=== PATIENT | female | born 2000 | race Two or more races ===

== ENCOUNTER 2025-03-05 10:59 | Observation (INO) | payer MEDICAID, OTHER ==
[~2025-03-05] VITALS: Ht 154.9 cm; Wt 60.0 kg
--- NOTE | 2025-03-05 11:10 | ED.PDOC ---
Back pain HPI HPI Comments This is a 25 year old female PATRICIA presenting to the ED with chief complaint of lower back pain. Patient reports that she has been experiencing right lower back pain for the past 2 days that radiates both down to her right thigh and up to her neck. Patient relays that she is currently 23 weeks and her pain came on spontaneously. Patient states she was seen at [facility] today, but had EMS called to take her to the ED for further evaluation. EMS notes patient was hypotensive at 97/63, providing a 1L bolus for relief. Patient denies any nausea, vomiting, abdominal pain, dysuria, fall, dizziness, or injury. Patient is . Time Seen by MD: 11:06 Reviewed Notes: Nurses Notes, Steel Tier Notes, Medications, Allergies Information Source: Patient, Emergency Med Personnel Mode of Arrival: EMS Timing: Days Duration: Since onset Location of Back pain: (R) Lumbar Radiates to: Posterior: (R) Thigh Severity: Moderate Prehospital treatment: None Quality: Aching Onset: Spontaneous History of: None Past Medical History PAST MEDICAL HISTORY: Denies Surgical History: Denies all surgeries NURSE QUALITY History: No Pertinent NURSE QUALITY History Family History Family History: Reviewed,noncontributory to illness Social History Smoker: Non-Smoker Alcohol: Denies ETOH Use Drugs: Denies Drug Use Lives In: Home Constitutional: denies: chills, diaphoresis, fatigue, fever, malaise, sweats, weakness, others EENTM: denies: blurred vision, double vision, ear bleeding, ear discharge, ear drainage, ear pain, ear ringing, eye pain, eye redness, hearing loss, mouth pain, mouth swelling, nasal discharge, nose bleeding, nose congestion, nose pain, photophobia, tearing, throat pain, throat swelling, voice changes, others Respiratory: denies: cough, hemoptysis, orthopnea, SOB at rest, shortness of breath, SOB with excertion, stridor, wheezing, others Cardiovascular: denies: chest pain, dizzy spells, diaphoresis, Dyspnea on exertion, edema, irregular heart beat, left arm pain, lightheadedness, palpitations, PND, syncope, others Gastrointestinal: denies: abdomen distended, abdominal pain, blood streaked bowels, constipated, diarrhea, dysphagia, difficulty swallowing, hematemesis, melena, nausea, poor appetite, poor fluid intake, rectal bleeding, rectal pain, vomiting, others Genitourinary: reports: ; denies: abnormal vagina bleeding, burning, dyspareunia, dysuria, flank pain, frequency, hematuria, incontinence, pain, vagina discharge, urgency, others Neurological: denies: dizziness, fainting, headache, left sided numbness, left sided weakness, numbness, paresthesia, pre-existing deficit, right sided numbness, right sided weakness, seizure, speech problems, tingling, tremors, weakness, others Musculoskeletal: reports: back pain; denies: gout, joint pain, joint swelling, muscle pain, muscle stiffness, neck pain, others Integumetry: denies: bruises, change in color, change in hair/nails, dryness, laceration, lesions, lumps, rash, wounds, others Allergic/Immunocompromised: denies: Difficulty Healing, Frequent Infections, Hives, Itching, others Hematologic/Lymphatic: denies: anemia, blood clots, easy bleeding, easy bruising, swollen glands, others Endocrine: denies: excessive hunger, excessive sweating, excessive thirst, excessive urination, flushing, intolerance to cold, intolerance to heat, unexplained weight gain, unexplained weight loss, others Psychiatric: denies: anxiety, bipolar disorder, depression, hopeless, panic disorder, schizophrenia, sleepless, suicidal, others All Other Systems: Reviewed and Negative Physical Exam General Appearance: No Apparent Distress HEENT: Normal ENT Inspection, Pharynx Normal, TMs Normal Neck: Full Range of Motion, Non-Tender, Normal, Normal Inspection Respiratory: Chest Non-Tender, Lungs Clear, No Accessory Muscle Use, No Respiratory Distress, Normal Breath Sounds Cardiovascular: No Edema, No JVD, No Murmur, No Gallop, Normal Peripheral Pulses, Regular Rate/Rhythm Breast Exam: Deferred Gastrointestinal: Non Tender, No Pulsatile Mass, Normal Bowel Sounds, Soft, Other (Gravid uterus) Genitalia: Deferred Pelvic: Deferred Rectal: Deferred Extremities: No calf tenderness, Normal capillary refill, Normal inspection, Normal range of motion, Non-tender, No pedal edema Musculoskeletal : Location: Bilateral Extremity Location: Back Apperance: Limited ROM, Tenderness: Mild Neurologic: Alert, window tinter II-XII nml as Tested, No Motor Deficits, Normal Affect, Normal Mood, No Sensory Deficits Cerebellar Function: Normal Reflexes: Normal Skin: Dry, Normal Color, Warm Lymphatic: No Adenopathy Was a procedure done? Was a procedure done?: No Back Pain Differential Dx Differential Diagnosis: Musculoskeletal Pain X-Ray, Labs, Meds, VS The patient was given acetaminophen 650 mg by mouth The patient is being transferred to labor and delivery. The patient is over 20 weeks Time of 1ST Reevaluation: 11:18 Reevaluation 1ST: Improved Patient Education/Counseling: Diagnosis, Treatment, Prognosis Family Education/Counseling: No Family Present SEPSIS Sepsis Screen Departure 1 Departure Time of Disposition: 11:18 Impression: Primary Impression: Back pain during Disposition: 01 HOME / SELF CARE / HOMELESS Condition: Fair Discharged With: Self Critical Care Note Critical Care Time?: No Stability Stability form required: No Heart Score Heart Score: Heart Score Response (Comments) Value History N/A 0 EKG N/A 0 Age N/A 0 Risk Factors N/A 0 Troponin N/A 0 Total 0 I personally scribed for SONG GALAN MD ([email or web address]) on 03/05/25 at 11:10. Electronically submitted by Javier Haley ([email or web address]). SONG GALAN MD Mar 05, 2025 11:10
[2025-03-05 11:24] VITALS: BP 92/65; PULSE 90; RESP 16; TEMP 98.1; O2SAT 98
[2025-03-05] MEDS: ACETAMINOPHEN 325 MG TAB PO ONE (11:24)
--- NOTE | 2025-03-06 13:15 | DVHDS2 ---
Physician Discharge Progress N Final Diagnosis: back pain 32wks Operations or Procedures: Operations or Procedures nst reactive reviwed,sono Condition on Discharge: Good Disposition: Home Discharge Instructions: Diet: Regular Activity: Light activity Follow Up/Referral: Follow up with primary OB provider Medications: na Follow Up Care: Specialist: 1w Discharge Statement: "Patient was advised to return to the ER or call 911 if any headaches, dizziness, shortness of breath, chest pain, abdominal pain, bleeding, fevers, or worsening of medical condition. Patient was counseled about treatment plan, medications, possible side effects, patientverbalized understanding. All questions were answered to the best of my ability. This discharge took greater then 30 minutes in planning, reviewing documentation, counseling the patient, and discussing with other team members." Visit Coding OBGYN Date of Service: Mar 05, 2025 Billing Provider: LAURITA ALICIA DO LEAD RECREATION ASSISTANT Common Visit Codes: 17783-[facility] (HIGH) LEAD RECREATION ASSISTANT Procedure Codes: 07647-13- NON-STRESS TEST LAURITA ALICIA DO Mar 06, 2025 13:15
== END 2025-03-05 13:07 | disposition home or self-care (01) ==
LOC: ER 10:59 → EDBD 10:59 → LDRP 11:35
PROVIDERS: ADMIT Obstetrics & Gynecology; ATTEND Obstetrics & Gynecology
DX: O99.891 Other specified diseases and conditions complicating pregnancy (principal); M54.59 Other low back pain; D84.9 Immunodeficiency, unspecified; Z3A.23 23 weeks gestation of pregnancy; Z98.890 Other specified postprocedural states
CPT/HCPCS: 81002; 99284; G0378; 94760